=== PATIENT | female | born 1995 | race American Indian/Alaskan Native ===

== ENCOUNTER 2021-10-09 11:03 | Emergency (ER) | payer MEDICAID ==
[2021-10-09 12:35] LABS: Amorphous Crystals,Urine Few; Bilirubin,Urine NEG (Negative); Blood,Urine NEG (Negative); Color,Urine Yellow (Yellow); Mucus,Urine FEW /HPF; Urobilinogen,Urine < 2.0 mg/dL (<2.0)
[2021-10-09 12:41] LABS: Basophils % (Auto) 0.6 % (0.0-1.8); Eosinophils # (Auto) 0.1 K/mm3 (0.0-0.4); Eosinophils % (Auto) 2.1 % (0.0-4.3); Hematocrit 37.4 % (30.3-42.9); Hemoglobin 12.4 gm/dl (10.1-14.3); Lymphocytes # (Auto) 1.4 K/mm3 (1.2-5.4); Lymphocytes % (Auto) 37.8 % (13.4-35.0); Mean Corpuscular HGB Conc 33 % (30-34); Mean Corpuscular Volume 92 fl (79-97); Monocytes # (Auto) 0.4 K/mm3 (0.0-0.8); Monocytes % (Auto) 11.5 % (0.0-7.3); Platelet Count 237 K/mm3 (140-440); Red Blood Count 4.06 M/mm3 (3.65-5.03); Red Cell Distribution Width 13.4 % (13.2-15.2)
[2021-10-09 12:48] LABS: INR 0.87 (0.87-1.13)
[2021-10-09 12:49] LABS: Partial Thromboplastin Time 30.3 Sec. (24.2-36.6)
--- NOTE | 2021-10-09 13:43 | Ultrasound Report ---
EARLY OBSTETRICAL ULTRASOUND INDICATION: vaginal bleeding COMPARISON: None pertinent available TECHNIQUE: Transabdominal and endovaginal FINDINGS: Intrauterine with estimated gestational age by crown-rump length 12 weeks 6 days. Cardiac activity documented at 1 59 bpm. No obvious anomalies though not full anatomic survey. Amnio tic fluid volume appears appropriate. Placenta appears to be forming posteriorly, free of internal ce rvical os but not well seen. No obvious hemorrhage. Ovaries appear within normal limits with blood flow seen. No adnexal masses. No free fluid. IMPRESSION: 12 week 6 day intrauterine without obvious abnormality Signer Name: Alfonso Prescott MD Signed: 10/09/2021 1:39 PM Workstation Name: [email or web address]
--- NOTE | 2021-10-09 14:27 | Emergency Department Report ---
ED HPI - General Chief complaint: Vaginal Bleeding Stated complaint: 13WKS /SPOITING/STOMACH PAIN Time Seen by Provider: 10/09/21 11:27 Source: patient Mode of arrival: Ambulatory Limitations: No Limitations - History of Present Illness Initial comments: This is a 25-year-old female nontoxic, well nourished in appearance, no acute signs of distress presents to the ED with c/o of vaginal bleeding x1 day. Patient stated yesterday she noticed some spotting. Currently patient denies any vaginal bleeding. Patient denies any abdominal or pelvic pain. Patient stated she is about 14 to 15 weeks currently. Patient stated she is not sure. Last menstrual cycle was July of this year. Patient denies any vaginal discharge or foul odor. Patient denies any nausea, vomiting, chest pain, shortness of breathe, fever, chills, headache, stiff neck, numbness, tingling. Patient denies any urinary symptoms. Patient denies any allergies or PMH. MD Complaint: vaginal bleeding -: days(s) (1) Severity scale (0 -10): 0 Improves with: none Worsens with: none Associated symptoms: vaginal bleeding. denies: nausea/vomiting, vaginal discharge, abdominal pain, dysuria, headache, vision changes, malaise, dysparuenia, rash, seizure, shortness of breath, syncope, weakness Vaginal bleeding: light :: Yes Pre- care: none - Related Data Allergies Allergy/AdvReac Type Severity Reaction Status Date / Time No Known Allergies Allergy Unverified 10/09/21 11:07 ED Review of Systems ROS: Stated complaint: 13WKS /SPOITING/STOMACH PAIN Other details as noted in HPI Comment: All other systems reviewed and negative Constitutional: denies: chills, fever Eyes: denies: eye pain, eye discharge, vision change ENT: denies: ear pain, throat pain Respiratory: denies: cough, shortness of breath, wheezing Cardiovascular: denies: chest pain, palpitations Endocrine: no symptoms reported Gastrointestinal: denies: abdominal pain, nausea, diarrhea Genitourinary: abnormal menses. denies: urgency, dysuria, discharge Musculoskeletal: denies: back pain, joint swelling, arthralgia Skin: denies: rash, lesions Neurological: denies: headache, weakness, paresthesias Psychiatric: denies: anxiety, depression Hematological/Lymphatic: denies: easy bleeding, easy bruising ED Past Medical Hx - Past Medical History Previous Medical History?: Yes Hx Asthma: Yes Additional medical history: Vaginal delivery x 2 - Surgical History Past Surgical History?: Yes Additional Surgical History: Tonsillectomy, Brando ear tubes @ young age - Social History Smoking Status: Current Every Day Smoker Substance Use Type: None ED Physical Exam - General Limitations: No Limitations General appearance: alert, in no apparent distress - Head Head exam: Present: atraumatic, normocephalic - Eye Eye exam: Present: normal appearance - Neck Neck exam: Present: normal inspection, full ROM. Absent: lymphadenopathy - Respiratory Respiratory exam: Present: normal lung sounds bilaterally. Absent: respiratory distress, wheezes, rales, rhonchi, stridor, chest wall tenderness, accessory muscle use, decreased breath sounds, prolonged expiratory - Cardiovascular Cardiovascular Exam: Present: regular rate, normal rhythm, normal heart sounds. Absent: bradycardia, tachycardia, irregular rhythm, systolic murmur, diastolic murmur, rubs, gallop - GI/Abdominal GI/Abdominal exam: Present: soft, normal bowel sounds. Absent: distended, tenderness, guarding, rebound, rigid - Extremities Exam Extremities exam: Present: full ROM - Back Exam Back exam: Present: normal inspection, full ROM. Absent: tenderness, CVA tenderness (R), CVA tenderness (L), muscle spasm, paraspinal tenderness, vertebral tenderness, rash noted - Neurological Exam Neurological exam: Present: alert, oriented X3, normal gait - Psychiatric Psychiatric exam: Present: normal affect, normal mood - Skin Skin exam: Present: warm, dry, intact, normal color. Absent: rash ED Course Vital Signs 10/09/21 11:07 Temperature 99 F Pulse Rate 74 Respiratory 20 Rate Blood Pressure 115/51 O2 Sat by Pulse 100 Oximetry - Reevaluation(s) Reevaluation #1: 10/09/21 14:25 Patient is speaking in full sentences with no signs of distress noted. ED Medical Decision Making - Lab Data Result diagrams: 10/09/21 12:00 Lab Results 10/09/21 10/09/21 10/09/21 Range/Units 12:00 12:00 12:00 WBC 3.7 L (4.5-11.0) K/mm3 RBC 4.06 (3.65-5.03) M/mm3 Hgb 12.4 (10.1-14.3) gm/dl Hct 37.4 (30.3-42.9) % MCV 92 (79-97) fl MCH 31 (28-32) pg MCHC 33 (30-34) % RDW 13.4 (13.2-15.2) % Plt Count 237 (140-440) K/mm3 Lymph % (Auto) 37.8 H (13.4-35.0) % [place] % (Auto) 11.5 H (0.0-7.3) % Eos % (Auto) 2.1 (0.0-4.3) % Baso % (Auto) 0.6 (0.0-1.8) % Lymph # (Auto) 1.4 (1.2-5.4) K/mm3 [place] # (Auto) 0.4 (0.0-0.8) K/mm3 Eos # (Auto) 0.1 (0.0-0.4) K/mm3 Baso # (Auto) 0.0 (0.0-0.1) K/mm3 Seg Neutrophils % 48.0 (40.0-70.0) % Seg Neutrophils # 1.8 (1.8-7.7) K/mm3 PT 12.8 (12.2-14.9) Sec. INR 0.87 (0.87-1.13) APTT 30.3 (24.2-36.6) Sec. HCG, Quant 73591 H (0-4) mIU/mL Urine Color (Yellow) Urine Turbidity (Clear) Urine pH (5.0-7.0) Ur Specific [place] (1.003-1.030) Urine Protein (Negative) mg/dL Urine Glucose (UA) (Negative) mg/dL Urine Ketones (Negative) mg/dL Urine Blood (Negative) Urine Nitrite (Negative) Urine Bilirubin (Negative) Urine Urobilinogen (<2.0) mg/dL Ur Leukocyte Esterase (Negative) Urine WBC (Auto) (0.0-6.0) /HPF Urine RBC (Auto) (0.0-6.0) /HPF U Epithel Cells (Auto) (0-13.0) /HPF Amorphous Crystals Urine Mucus /HPF Blood Type 03/27/22 03/27/22 Range/Units 12:00 12:09 WBC (4.5-11.0) K/mm3 RBC (3.65-5.03) M/mm3 Hgb (10.1-14.3) gm/dl Hct (30.3-42.9) % MCV (79-97) fl MCH (28-32) pg MCHC (30-34) % RDW (13.2-15.2) % Plt Count (140-440) K/mm3 Lymph % (Auto) (13.4-35.0) % [place] % (Auto) (0.0-7.3) % Eos % (Auto) (0.0-4.3) % Baso % (Auto) (0.0-1.8) % Lymph # (Auto) (1.2-5.4) K/mm3 [place] # (Auto) (0.0-0.8) K/mm3 Eos # (Auto) (0.0-0.4) K/mm3 Baso # (Auto) (0.0-0.1) K/mm3 Seg Neutrophils % (40.0-70.0) % Seg Neutrophils # (1.8-7.7) K/mm3 PT (12.2-14.9) Sec. INR (0.87-1.13) APTT (24.2-36.6) Sec. HCG, Quant (0-4) mIU/mL Urine Color Yellow (Yellow) Urine Turbidity Cloudy (Clear) Urine pH 8.0 H (5.0-7.0) Ur Specific [place] 1.015 (1.003-1.030) Urine Protein 100 mg/dl (Negative) mg/dL Urine Glucose (UA) Neg (Negative) mg/dL Urine Ketones Neg (Negative) mg/dL Urine Blood Neg (Negative) Urine Nitrite Neg (Negative) Urine Bilirubin Neg (Negative) Urine Urobilinogen < 2.0 (<2.0) mg/dL Ur Leukocyte Esterase Neg (Negative) Urine WBC (Auto) 2.0 (0.0-6.0) /HPF Urine RBC (Auto) 1.0 (0.0-6.0) /HPF U Epithel Cells (Auto) 3.0 (0-13.0) /HPF Amorphous Crystals Few Urine Mucus Few /HPF Blood Type A POSITIVE - Radiology Data [address] [address] Ultrasound Report Signed Patient: MILAGROS HOPE MR#: [id number] : 1995 Acct:[id number] Age/Sex: 25 / F ADM Date: 10/09/21 Loc: ED Attending Dr: Ordering Physician: AARON HUA NP Date of Service: 10/09/21 Procedure(s): US OB <= 14 weeks fetus Accession Number(s): [id number] cc: AARON HUA NP EARLY OBSTETRICAL ULTRASOUND INDICATION: vaginal bleeding COMPARISON: None pertinent available TECHNIQUE: Transabdominal and endovaginal FINDINGS: Intrauterine with estimated gestational age by crown-rump length 12 weeks 6 days. Cardiac activity documented at 1 59 bpm. No obvious anomalies though not full anatomic survey. Amniotic fluid volume appears appropriate. Placenta appears to be forming posteriorly, free of internal cervical os but not well seen. No obvious hemorrhage. Ovaries appear within normal limits with blood flow seen. No adnexal masses. No free fluid. IMPRESSION: 12 week 6 day intrauterine without obvious abnormality Signer Name: Alfonso Prescott MD Signed: 10/09/2021 1:39 PM Workstation Name: [id number] Transcribed By: GJ Dictated By: Alfonso Prescott MD Electronically Authenticated By: Alfonso Prescott MD Signed Date/Time: 10/09/211338 DD/ 35 TD/TT: [address] [address] Ultrasound Report Signed Patient: MILAGROS HOPE MR#: [id number] : 1995 Acct:[id number] Age/Sex: 25 / F ADM Date: 10/09/21 Loc: ED Attending Dr: Ordering Physician: AARON HAU NP Date of Service: 10/09/21 Procedure(s): US OB transvaginal Accession Number(s): [id number] cc: AARON HUA NP EARLY OBSTETRICAL ULTRASOUND INDICATION: vaginal bleeding COMPARISON: None pertinent available TECHNIQUE: Transabdominal and endovaginal FINDINGS: Intrauterine with estimated gestational age by crown-rump length 12 weeks 6 days. Cardiac activity documented at 1 59 bpm. No obvious anomalies though not full anatomic survey. Amniotic fluid volume appears appropriate. Placenta appears to be forming posteriorly, free of internal cervical os but not well seen. No obvious hemorrhage. Ovaries appear within normal limits with blood flow seen. No adnexal masses. No free fluid. IMPRESSION: 12 week 6 day intrauterine without obvious abnormality Signer Name: Alfonso Prescott MD Signed: 10/09/2021 1:39 PM Workstation Name: [id number] Transcribed By: Dictated By: Alfonso Prescott MD Electronically Authenticated By: Alfonso Prescott MD Signed Date/Time: 10/09/211338 DD/ 35 TD/TT: Print - Medical Decision Making This is a 25-year-old female presents with threatened miscarriage. Patient is stable and was examined by me. Normal abdominal exam. US OB obtained and dictated by the radiologist. Ua obtained. Quantative serum test obtained. Patient notified of the US report with no questions noted by the patient. Patient was instructed f/u with CHILD THERAPIST in 3-5 days. RH factor positive. Labs within normal limits. At time of discharge, the patient does not seem toxic or ill in appearance. No acute signs of distress noted. Patient agrees to discharge treatment plan of care. No further questions noted by the patient. Critical care attestation.: If time is entered above; I have spent that time in minutes in the direct care of this critically ill patient, excluding procedure time. ED Disposition Clinical Impression: Threatened miscarriage Disposition: HOME / SELF CARE / HOMELESS Is pt being admited?: No Does the pt Need Aspirin: No Condition: Stable Instructions: Threatened Miscarriage, [id number] Additional Instructions: Follow-up with a CHILD THERAPIST doctor in 3-5 days or if symptoms worsen and continue return to emergency room as soon as possible. Referrals: [facility] [Provider Group] - 3-5 Days [facility] [Provider Group] - 3-5 Days Time of Disposition: 14:28
[2021-10-09 14:49] VITALS: BP 100/56
== END 2021-10-09 14:50 | disposition home or self-care (01) ==
LOC: ED 11:03
DX: O20.0 Threatened abortion (principal); Z3A.13 13 weeks gestation of pregnancy; F17.200 Nicotine dependence, unspecified, uncomplicated; J45.909 Unspecified asthma, uncomplicated
CPT/HCPCS: 36415; 76801; 76817; 81001; 84702; 85025; 85610; 85730; 86900; 86901; 99284

== ENCOUNTER 2022-02-17 20:32 | Outpatient (CLI) | payer MEDICAID ==
[2022-02-17 21:01] VITALS: BP 120/66
[2022-02-17 21:39] LABS: Bilirubin,Urine Negative (Negative); Blood,Urine Negative (Negative); Color,Urine Yellow (Yellow); Urobilinogen,Urine 0.2 mg/dL (<2.0)
[2022-02-17 21:40] LABS: Mucus,Urine FEW /HPF
[2022-02-17] MEDS ORDERED: ACETAMINOPHEN 500 MG TAB PO ONE (21:55)
== END 2022-02-17 22:15 | disposition home or self-care (01) ==
LOC: TRG 20:32 → APU 20:35 → TRG 22:15
PROVIDERS: ATTEND Obstetrics & Gynecology
DX: O26.893 Other specified pregnancy related conditions, third trimester (principal); R10.2 Pelvic and perineal pain; Z3A.30 30 weeks gestation of pregnancy
CPT/HCPCS: 81001